=== PATIENT | male | born 1990 | race Two or more races ===

== ENCOUNTER 2017-11-10 11:41 | Emergency (ER) | payer SELFPAY ==
--- NOTE | 2017-11-10 12:33 | EDPHY ---
General Time Seen by Provider: 11/10/17 12:21 Narrative: CHIEF COMPLAINT: Finger laceration HISTORY OF PRESENT ILLNESS: Patient presents with complaints of laceration to the left 5th finger. He was working in the garden with friend, when he cut on a piece of aluminum or sheet metal. He describes it as a deep laceration with severe pain and bleeding. Unable to move the finger. Some tingling distally. No injury elsewhere. No position of comfort. He is currently visiting from [facility]. He is here for another 2 weeks. No other associated complaints or modifying factors. TIME OF INJURY: Less than 1 hr prior to arrival TETANUS STATUS: Uncertain MEDICAL/SURGICAL/SOCIAL HISTORY: REVIEW OF SYSTEMS: Ten systems reviewed and are negative unless otherwise noted in the HPI EXAMINATION General Appearance: Alert, no distress. Anxious Head: normocephalic, atraumatic Cardiovascular: Symmetric radial pulses. There is brisk cap refill on the injured finger but there is apparent injury to the radial digital artery. Neurological: A&O, decreased 2 point sensation of the left little finger. Skin: Warm and dry, no rash. There is a full-thickness laceration of the left little finger, palmar over the middle phalanx. This is approximately 3.5 cm, oblique and involving the flexor tendon. There is slight pulsatile bleeding on the radial digital artery. He remains neurovascular intact distally with brisk cap refill the injured finger. Extremities: Nontender, no pedal edema DIFFERENTIAL DIAGNOSES: Including but not limited to laceration with tendon injury, laceration, complex laceration, laceration foreign body, laceration with fracture MDM: 12:25 p.m. Deep laceration of the left 5th finger on the palmar side overlying the middle phalanx. Unable to fully examine the patient due to pain, thus I will administer digital block and re-evaluate. He seems to be neurovascular intact but there does appear to be a tendon injury. I have ordered x-ray, tetanus booster, irrigation and I will re-evaluate for tendon injury. 1:00 p.m. Wound has been irrigated and I re-evaluated. He does have an injury to the flexor digitorum profundus. I do not appreciate injury to the superficialis. I will contact hand surgeon for definitive care 1:10 p.m. Case discussed with Dr. Gino Barahona, hand surgeon. He request Ancef, irrigation and closure. He would like to in compass office today. He is aware of the digital arterial injury on the radial side, but there is collateral flow with brisk cap refill. 1:50 p.m. Laceration has been repaired. This was very complex but successful temporary closure. There is still brisk cap refill postprocedure. He will receive Ancef , and oral Percocet. He will be placed in a compressive dressing and Alumafoam splint. He will be discharged with prescription for Keflex and pain medication and sent directly to the hand surgeon's office. The patient is comfortable driving over the has a friend who will drive him. We discussed ED precautions for any worsening pain, numbness, tingling, cyanosis or pallor. The patient is tentatively scheduled for surgical intervention Tomorrow morning with Dr. Gino aBrahona PROCEDURE: Laceration repair Consent: Verbal Location: Left little finger, middle phalanx Length of repair: 3.5 cm Complexity: Complex Layer involvement: Full-thickness Anesthesia: Digital block Irrigation: Extensive Debridement: None Procedure description: Following good anesthesia, the wound was copiously irrigated. Wound bed was explored with a sterile glove, and there is no foreign body noted. There was pulsatile bleeding from the radial digital artery. There was injury to the flexor digitorum profundus with complete severing of this tendon. Tolerated well without complication. Suture/Staple material: 5-0 Prolene, 8 simple interrupted sutures Wound care: Routine as discussed Suture/Staple removal: Per hand surgeon as you will need surgical intervention within 24 hr PROCEDURE: Digital Block Indication: Finger laceration Consent: Verbal Location: Left 5th finger Anesthesia: Lidocaine 1% plain, 0.25% Marcaine plain, 5mL Description: Base of the finger was prepped. The above was infused without difficulty. Tolerated well. Good anesthesia. Complications: None SUPERVISION: Patient was independently examined, but I discussed the case with my secondary supervising physician Dr. Figueroa ED Precautions: Worsening pain. Erythema, edema, cyanosis, pallor, paresthesia or anesthesia. - History Smoking Status: Never smoked - Objective Vital Signs: Initial Vital Signs Temperature (C) 97.9 F 11/10/17 11:44 Heart Rate 96 11/10/17 11:44 Respiratory Rate 17 11/10/17 11:44 Blood Pressure 140/88 H 11/10/17 11:44 O2 Sat (%) 97 11/10/17 11:44 O2 Delivery Mode Room Air Allergies/Adverse Reactions: No Known Allergies Allergy (Verified 11/10/17 17:54) Home Medications: Medication Instructions Recorded Cephalexin [Keflex (*)] 500 mg PO QID #40 cap 11/10/17 oxyCODONE HCL/ACETAMINOPHEN 1 each PO Q4-6PRN PRN #19 tablet 11/10/17 [Percocet 5-325 mg Tablet] Medications Given: Discontinued Medications Cefazolin Sodium (Ancef) 1,000 mg IM ONCE ONE PRN Reason: Protocol Stop: 11/10/17 13:13 Last Admin: 11/10/17 14:19 Dose: 1,000 mg Diphtheria/Tetanus/Acell Pertussis (Boostrix) 0.5 ml IM .ONCE ONE Stop: 11/10/17 12:35 Last Admin: 11/10/17 13:11 Dose: 0.5 ml Oxycodone/Acetaminophen (Percocet 5/325) 2 tab PO EDNOW ONE Stop: 11/10/17 13:53 Last Admin: 11/10/17 13:59 Dose: 2 tab Departure - Departure Disposition: Home, Routine, Self-Care Clinical Impression: Laceration of little finger with tendon involvement Qualifiers: Encounter type: initial encounter Qualified Code(s): S61.218A - Laceration without foreign body of other finger without damage to nail, initial encounter; S66.929A - Laceration of unspecified muscle, fascia and tendon at wrist and hand level, unspecified hand, initial encounter; S66.929A - Laceration of unspecified muscle, fascia and tendon at wrist and hand level, unspecified hand , initial encounter Injury of radial digital artery of left hand Qualifiers: Encounter type: initial encounter Qualified Code(s): S65.102A - Unspecified injury of radial artery at wrist and hand level of left arm, initial encounter Condition: Good Instructions: Cephalexin (By mouth), Oxycodone/Acetaminophen (By mouth), Laceration (ED), Tdap and Td Vaccines for Adults (ED), Tendon Repair (DC) Additional Instructions: 1. Proceed directly to the office of Dr. Barahona. [facility] in [place], [place] Address is [address] [place] [address]. Phone number is [phone]/Proceder directamente a la oficina del Doctor Jun. [facility] in [place] DOMICILIO [address] [place] [address]. Maty telefonico [phone] 2. Keflex as prescribed to completion/[place] Keflex maryann fue recetado hasta que lo temine 3. Percocet pain medication as prescribed as needed/[place] Percocet para control de dolor maryann fue indicado hasta terminarlo 4. Do not eat or drink anything unless seen by the hand surgeon Dr. Barahona and told it's okay to do so/No tome o coma nada al menos que lo sarah el cirujano de mano Doctor Barahona y que el le halla indicado 5. Return to emergency department for worsening pain, numbness, tingling, weakness, changes in color of the finger/Regrese al departamento de emergencia si empeora el dolor, siente hormigueo, adormecido o tiene cambios en el color de adams dedo Adams medicamento es: Cephalexin [Keflex] tome 500 miligramos oral cuatro veces por gerardo (antibiotico) oxyCODONE HCL/ACETAMINOPHEN [Percocet 5/325] tome anu tableta oral cada 4 a 6 horas maryann necesite para dolor Referrals: Gino Barahona MD [Medical Doctor] - As per Instructions ([facility] [address] [address]) Prescriptions: Cephalexin [Keflex (*)] 500 mg PO QID #40 cap oxyCODONE HCL/ACETAMINOPHEN [Percocet 5-325 mg Tablet] 1 each PO Q4-6PRN PRN # 19 tablet PRN Reason: Pain, Breakthrough Print Language: Brazilian
[2017-11-10] MEDS ORDERED: TDAP ADULT 0.5 ML INJ (BOOSTRIX) IM ONE (12:34)
[2017-11-10] MEDS ORDERED: CEFAZOLIN 330 MG/ML IM SYRINGE IM ONE (13:12)
[2017-11-10] MEDS ORDERED: OXYCODONE/APAP 5/325 TAB PO ONE (13:52)
[2017-11-10 14:31] VITALS: BP 139/85
== END 2017-11-10 14:31 | disposition home or self-care (01) ==
PROC: 0HQGXZZ Repair Left Hand Skin, External Approach (ICD-10-PCS; principal; 2017-11-10)
DX: S66.327A Laceration of extensor muscle, fascia and tendon of left little finger at wrist and hand level, initial encounter (principal); S65.102A Unspecified injury of radial artery at wrist and hand level of left arm, initial encounter; Z23 Encounter for immunization; W29.3XXA Contact with powered garden and outdoor hand tools and machinery, initial encounter; Y92.007 Garden or yard of unspecified non-institutional (private) residence as the place of occurrence of the external cause; Y99.0 Civilian activity done for income or pay; Y93.89 Activity, other specified
CPT/HCPCS: L3925

== ENCOUNTER 2017-11-10 17:46 | Emergency (ER) | payer SELFPAY ==
--- NOTE | 2017-11-10 19:01 | EDPHY ---
H & P Stated Complaint: FINGER LAC EARLIER/DEVELOPED N/V POST PAIN MEDS/ABX Time Seen by Provider: 11/10/17 18:21 HPI/ROS: Chief complaint: Finger laceration recheck History of present illness: This is a 27-year-old male who presents to the emergency department for a finger laceration recheck. Patient was seen in this emergency department today. He sustained a significant finger injury. The wound was cleaned and repaired. He was sent to Dr. Barahona's office. He is tentatively scheduled tomorrow for surgical repair of multiple injuries to the fingers. However he has been told it is very expensive and he states he cannot afford it. He returns here for surgery. No new complaints since previously seen. - Personal History Current Tetanus Diphtheria and Acellular Pertussis (TDAP): Yes - Medical/Surgical History Hx Asthma: No Hx Chronic Respiratory Disease: No Hx Diabetes: No Hx Cardiac Disease: No Hx Renal Disease: No Hx Cirrhosis: No Hx Alcoholism: No Hx HIV/AIDS: No Hx Splenectomy or Spleen Trauma: No Other PMH: denies - Social History Smoking Status: Never smoked - Physical Exam Exam: General: Alert, nontoxic. Skin: There is a dressing in place over the left 5th finger. Musculoskeletal: Patient is in an aluminum foam splint. Vascular: Capillary refill is brisk in the left 5th finger. Neurologic: He does have some sensation left 5th finger. Constitutional: Initial Vital Signs Temperature (C) 37 C 11/10/17 17:55 Heart Rate 55 L 11/10/17 17:55 Respiratory Rate 18 11/10/17 17:55 Blood Pressure 119/78 11/10/17 17:55 O2 Sat (%) 95 11/10/17 17:55 O2 Delivery Mode Room Air Allergies/Adverse Reactions: No Known Allergies Allergy (Verified 11/10/17 17:54) Home Medications: Medication Instructions Recorded Cephalexin [Keflex (*)] 500 mg PO QID #40 cap 11/10/17 oxyCODONE HCL/ACETAMINOPHEN 1 each PO Q4-6PRN PRN #19 tablet 11/10/17 [Percocet 5-325 mg Tablet] Medical Decision Making ED Course/Re-evaluation: I discussed the case with my primary supervising physician Dr. Thuy Salcido. Patient presents to the emergency department stating surgery will be too expensive for him. I contacted Dr. Barahona. He does state he is willing to wave a significant amount of his fee. Patient will need to talk the hospital about hospital fees. Case management has seen this patient. Ultimately I discussed with the patient that he will need to talk with Dr. Barahona to have surgery done as Dr. Barahona states it should be done within a week. He will need to look into payment plans/options. Home care is discussed. The importance of surgical repair is discussed. Return precautions given. Departure - Departure Disposition: Home, Routine, Self-Care Clinical Impression: Laceration of little finger with tendon involvement Qualifiers: Encounter type: initial encounter Qualified Code(s): S61.218A - Laceration without foreign body of other finger without damage to nail, initial encounter; S66.929A - Laceration of unspecified muscle, fascia and tendon at wrist and hand level, unspecified hand, initial encounter; S66.929A - Laceration of unspecified muscle, fascia and tendon at wrist and hand level, unspecified hand , initial encounter Injury of radial digital artery of left hand Qualifiers: Encounter type: initial encounter Qualified Code(s): S65.102A - Unspecified injury of radial artery at wrist and hand level of left arm, initial encounter Condition: Good Instructions: Care For Your Stitches (ED) Additional Instructions: Follow-up with Dr. Barahona for continued care. Discuss payment options plans with the doctor's office. If symptoms worsen or new symptoms develop return to the emergency room for recheck Seguimiento con el Dr. Barahona para continuar el cuidado. Duscuta opciones de pago con la oficina del medico. Si los sintomas empeoran o si desarolla intomas nuevos, regrrese al cuarto de emergencias para un chequeo. Referrals: Gino Barahona MD [Medical Doctor] - As per Instructions Print Language: Hungarian
[2017-11-10 19:59] VITALS: BP 124/76
== END 2017-11-10 19:57 | disposition home or self-care (01) ==
DX: S66.127D Laceration of flexor muscle, fascia and tendon of left little finger at wrist and hand level, subsequent encounter (principal); S65.10 Unspecified injury of radial artery at wrist and hand level; X58.XXXD Exposure to other specified factors, subsequent encounter